=== PATIENT | male | born 1990 | race Caucasian/White ===

== ENCOUNTER 2025-04-01 07:43 | Emergency (ER) | payer OTHER, SELFPAY ==
[2025-04-01 07:47] VITALS: BP 132/79; PULSE 69; TEMP 36.8; O2SAT 100; BMI 36.9
--- NOTE | 2025-04-01 08:06 | ED_ITS ---
HPI HPI - Back Pain/Injury General Chief Complaint: Back Pain/Injury Stated Complaint: L SIDE BACK PAIN Time Seen by Provider: 04/01/25 07:52 Source: patient Mode of arrival: walk-in Limitations: no limitations History of Present Illness HPI Narrative: The patient is a 34-year-old male who has no previous significant past medical history, is coming to the ER with a few hours history of left lower back pain that started when he was descending the stairs today, mentioned that yesterday he was doing some yard work he did not have any pain yesterday but this pain started today, the pain is there with movement as well as when he is laying on the left side against the bed, no radiation down his leg there is no numbness tingling in his lower extremity although the patient feels some numbness in his right hand sometimes the pain associated with dizziness, The patient have no nausea no vomiting no burning with urination no frequency no hematuria Related Data Previous Rx's ?Medication ?Instructions ?Recorded diclofenac sodium 75 mg 75 mg PO BID PRN pain #20 ta bs 04/01/25 tablet,delayed release orphenadrine citrate 100 mg 100 mg PO BID PRN muscle s pasm #20 04/01/25 tablet,extended release tabs Allergies Allergy/AdvReac Type Severity Reaction Status Date / Time sulfamethoxazole (From Allergy Intermediate Diarrhea Verified 04/01/25 07:51 Bactrim) trimethoprim (From Bactrim) Allergy Intermediate Diarrhea Verified 04/01/25 07:51 Opioid HPI Opioid Management Most Recent Opioid Data: Last Pain Scale 2 Today, 07:54 Review of Systems ROS Status of ROS 10 or more systems reviewed and unremark able except as noted in history and below PFSH PFSH Social History Little interest or pleasure in doing things: not at all Feeling down, depressed, or hopeless: not at all Exam Narrative Exam Narrative: Nurses notes and vital signs reviewed and patient is not hypoxic. General: Well-appearing and in no apparent distress. Skin: Warm, dry, no pallor noted. No rash. Head: Normocephalic, atraumatic. Neck: Supple, non-tender. Cardiovascular: Regular Rate and Rhythm without murmur, gallop or rub. Respiratory: No accessory muscle use or respiratory distress. Lungs are clear to auscultation, no wheezing, rales or rhonchi Chest Wall: no tenderness Back: No midline thoracic or lumbar vertebral tenderness. Left upper lumbar process tenderness and left flank tenderness on palpation of the superficial muscle there is no pain with percussion Musculoskeletal: normal ROM, no calf or popliteal tenderness, no lower extremity edema/swelling GI: Abdomen is soft, non-distended. Normal bowel sounds. No masses appreciated. No tenderness to palpation. No rebound, guarding, or rigidity noted. Neurological: A&O x4. No cranial nerve dysfunction observed. Constitutional Vital Signs, click to edit/add: Last Vital Signs Temp 98.2 F 04/01/25 07:47 Pulse 60 04/01/25 09:43 Resp 14 04/01/25 09:43 BP 99/66 04/01/25 09:43 Pulse Ox 98 04/01/25 09:43 O2 Del Method Room Air 04/01/25 09:43 Course Vital Signs Vital signs: Vital Signs Temperature 98.2 F 04/01/25 07:47 Pulse Rate 69 04/01/25 07:47 Respiratory Rate 14 04/01/25 07:47 Blood Pressure 132/79 04/01/25 07:47 Pulse Oximetry 100 04/01/25 07:47 Oxygen Delivery Method Room Air 04/01/25 07:47 Temperature 98.2 F 04/01/25 07:47 Pulse Rate 60 04/01/25 09:43 Respiratory Rate 14 04/01/25 09:43 Blood Pressure 99/66 04/01/25 09:43 Pulse Oximetry 98 04/01/25 09:43 Oxygen Delivery Method Room Air 04/01/25 09:43 MDM - Back Pain/Injury MDM Narrative Medical decision making narrative: The patient urinalysis showed no UTI and no RBCs Patient presentation right now is less likely to be secondary to kidney stone especially with the pain related to movement and laying on that side, the pain right now is better after being treated with Toradol and Norflex Right now the patient was instructed about continuing Voltaren and Norflex at home and monitoring symptom I did explain to him as well as his family at the bedside that this presentation could be secondary to other reasons as well but with his current relation to movement it is less likely but still a possibility that should be raised in case the pain continue Patient to come back if concerning symptoms or concerns The patient is to follow up with primary care physician in next 2-3 days or to return to the emergency department should any of the signs or symptoms worsen or new symptoms develop. The patient agrees with the following Diagnosis and Treatment plan and the patient will be discharged home. Lab Data Labs: Lab Results 04/01/25 Range/Units 08:35 Urine Color Yellow (YELLOW) Urine Clarity Clear (CLEAR) Urine pH 6.0 (5.0-9.0) Ur Specific [place] >=1.030 A (1.005-1.025) Urine Protein 30 A (NEG/TRACE) mg/dL Urine Glucose (UA) Negative (NEGATIVE) mg/dL Urine Ketones Negative (NEGATIVE) mg/dL Urine Occult Blood Negative (NEGATIVE) Urine Nitrite Negative (NEGATIVE) Urine Bilirubin Negative (NEGATIVE) Urine Urobilinogen 1.0 (0.2-1.0) EU/dL Ur Leukocyte Esterase Negative (NEGATIVE) Urine RBC 0-2 (0-2) #/HPF Urine WBC 0-2 A (NONE SEEN) #/HPF Ur Squamous Epith Cells Few A (NONE/RARE) #/LPF Urine Crystals None seen (None Seen) #/HPF Urine Bacteria Trace A (NONE SEEN) #/HPF Urine Casts None seen (NONE SEEN) #/LPF Urine Mucus Large A (NONE SEEN) Ur Culture Indicated? No Discharge Plan Discharge Chief Complaint: Back Pain/Injury Clinical Impression: Back strain Patient Disposition: Home, Self-Care Time of Disposition Decision: 09:25 Condition: Good Mode of Transportation: Private Vehicle Prescriptions / Home Meds: New diclofenac sodium 75 mg tablet,delayed release (DR/EC) 75 mg PO BID PRN (Reason: pain) Qty: 20 0RF orphenadrine citrate 100 mg tablet extended release 100 mg PO BID PRN (Reason: muscle spasm) Qty: 20 0RF Print Language: Upper Sorbian Instructions: Low Back Strain (ED) Referrals: Physician,Non-Staff, [Physician] - 1 week Discharge Date/Time: 04/01/25 09:46
[2025-04-01] MEDS: ORPHENADRINE 60 MG/2 ML VIAL IM (08:07)
[2025-04-01] MEDS: KETOROLAC TROMETHAMINE 60 MG/2 ML VIAL IVP (08:07)
[2025-04-01 08:50] LABS: Glucose Urine UA NEGATIVE (NEGATIVE)
[2025-04-01 09:18] LABS: Cast Seen? NONE SEEN #/LPF (NONE SEEN); Crystals Seen? None Seen #/HPF (None Seen); Urine Culture Indicated NO
[2025-04-01 09:43] VITALS: BP 99/66; PULSE 60; O2SAT 98
== END 2025-04-01 09:46 | disposition home or self-care (01) ==
PROVIDERS: Emergency Provider Emergency Medicine; PCP Family Medicine
DX: S39.012A Strain of muscle, fascia and tendon of lower back, initial encounter (principal); X58.XXXA Exposure to other specified factors, initial encounter
CPT/HCPCS: 81001; 96372; 96374; 99284; J1885; J2360